=== PATIENT | male | born 1925 ===

== ENCOUNTER 2017-06-21 19:33 | Inpatient (IN) | payer MEDICARE ==
[2017-06-21 20:57] LABS: #Eosinphils 0.1 thou/uL (0.0-0.7); #Monocytes 0.5 thou/uL (0.11-0.59); #Neutrophils 3.8 thou/uL (1.40-6.50); %Basophils 0.3 % (0.0-1.0); %Eosinophils 1.7 % (0.0-10.0); %Lymphocytes 17.9 % (21.0-51.0); %Monocytes 8.9 % (0.0-10.0); %Neutrophils 71.3 % (42.0-75.0); Hemoglobin 12.4 g/dL (14.0-18.0); Mean Corpuscular HGB CONC 32.5 g/dL (32.0-36.0); Mean Corpuscular Hemoglobin 30.7 pg (27.0-31.0); Mean Corpuscular Volume 94.7 fl (80.0-94.0); Mean Platelet Volume 7.5 fL (7.4-10.4); Platelet Count 223 thou/uL (130-400); RBC Distribution Width 11.8 % (11.5-14.5); Red Blood Cell (RBC) Count 4.04 mill/uL (4.70-6.10); White Blood Cell (WBC) Count 5.3 thou/uL (4.8-10.8)
[2017-06-21 21:16] LABS: ALT (SGPT) 8 U/L (8-55); AST (SGOT) 19 U/L (5-34); Albumin 3.7 g/dL (3.4-4.8); Alkaline Phosphatase 63 U/L (40-150); Anion Gap 15 mmol/L (10-20); BUN (Urea Nitrogen) 25 mg/dL (8.4-25.7); Bilirubin, Total 0.4 mg/dL (0.2-1.2); Calc. Creatinine Clearance 0 mL/min (70-130); Calcium 8.8 mg/dL (7.8-10.44); Carbon Dioxide 21 mmol/L (23-31); Chloride 110 mmol/L (98-107); Estimated GFR-MDRD 58; Globulin 2.9 g/dL (2.4-3.5); Glucose 153 mg/dL (83-110); Potassium 4.1 mmol/L (3.5-5.1); Protein, Total 6.6 g/dL (5.8-8.1); Sodium 142 mmol/L (136-145)
--- NOTE | 2017-06-21 21:30 | ULT ---
LEFT LOWER EXTREMITY VENOUS DOPPLER ULTRASOUND 06/21/17 COMPARISON: None. HISTORY: Left foot and ankle pain with swelling and redness. TECHNIQUE: Multiplanar sandoval scale sonographic imaging of the venous structures of the left lower extremity obtayah monteiro with color flow and spectral analysis. FINDINGS: The left common femoral vein, femoral vein, popliteal vein, greater saphenous vein, profunda femoral vein, anterior tibial vein, and posterior tibial vein are patent. There is normal blood flow, augmentation and compression within the deep venous system on the left wi th no evidence for DVT. IMPRESSION: No evidence for deep venous thrombosis of the left lower extremity. POS: ANTON
[2017-06-21] MEDS ORDERED: Piperacillin/Tazobactam 4.5 GM in Sodium Chloride 0.9% 100 ML IVPB SCH (22:15)
[2017-06-22 00:34] LABS: Hemoglobin A1c 5.8 % (4.0-6.0)
[2017-06-22] MEDS ORDERED: Dextrose 50% Abboject 50 ML SYRINGE SLOW IVP PRN (00:43)
[2017-06-22] MEDS ORDERED: Ondansetron HCl/PF 4 MG/2 ML Vial IVP PRN ×2 (00:43→12:30)
[2017-06-22] MEDS ORDERED: Dextrose 5% in Water 1,000 ML IV PRN (00:43)
--- NOTE | 2017-06-22 00:48 | HP ---
DATE OF ADMISSION: 06/21/2017 CHIEF COMPLAINT: Left leg redness and swelling. HISTORY OF PRESENT ILLNESS: This is an 89-year-old white male living in [place] happened to notice the swelling of his left leg for the past 1 week and the fifth toe was oozing blood and has open woun d, so this was noticed by his and daughter today and they went to [place] [facility], where they had x- rays of the foot, which was showing an evidence of fifth metatarsal head erosions suggestive of osteo myelitis. Patient was immediately transferred to [facility]. Patient did not look any septic, hi s white count was normal. His leg was very swollen compared to the right leg and had a venous Dopple r, which was negative. Discussed with ER physician, who plan to call Orthopedics on-call for further management. Patient was started on vancomycin and while in the ER, and he has known history of type 2 diabetes mellitus. According to him, he never checks his blood sugars. Patient is very noncompli ant. His blood sugars in the ER were mildly elevated to 153. Patient otherwise has no other known m edical history PAST MEDICAL HISTORY: Type 2 diabetes mellitus, poorly controlled. PAST SURGICAL HISTORY: Patient had history of left total knee replacement and has a history of colon cancer with partial colectomy more than 10 years ago. Otherwise, he is in good health. SOCIAL HISTORY: Patient is not a known smoker. He smoked more than 30 years ago. No history of alc ohol, no history of illicit drug use. FAMILY HISTORY: No significant family history of coronary artery disease or no premature deaths in t he family. ALLERGIES: No known drug allergies. HOME MEDICATIONS: Patient is not on any home medications. REVIEW OF SYSTEMS: All 12 systems are reviewed with the patient thoroughly and found to be negative at this time. Systems reviewed HEENT, CVS, PRODUCT DISTRIBUTION SPECIALIST, respiratory, GI, , musculoskeletal, skin and integ ument, psychiatric. PHYSICAL EXAMINATION: VITAL SIGNS: Blood pressures are 128/88, heart rate is 18, saturation is 98% on room air. GENERAL: The patient is moderately built and moderately nourished, does not appears to be in acute d istress at this time. Alert, oriented x3. HEENT: Atraumatic, normocephalic. PERRLA. Extraocular movements were intact. Oral mucosa pink and moist. CARDIOVASCULAR: S1, S2 normal. No murmurs, rubs, or gallops. LUNGS: Bilateral air entry was equal. No wheezing, no crackles. ABDOMEN: Soft, nontender, no guarding, no rebound tenderness. Bowel sounds normal. MUSCULOSKELETAL: Patient has left lower extremity, markedly swollen compared to the right extremity with erythema and open serosanguineous discharge noted in the fifth toe of the left leg. No calf ten derness, no joint tenderness, no joint swelling. SKIN: No cyanosis, no erythema was noted as stated above. PRODUCT DISTRIBUTION SPECIALIST: Cranial nerve examination II-XII intact. No focal deficits were noted. Patient does have sens ory deficits on both the lower extremities secondary to poorly controlled type 2 diabetes mellitus. PSYCHIATRIC: No signs of suicidal ideation. No signs of johnnie. No signs of agitation. LYMPHADENOPATHY: No evidence of any generalized lymph nodes were noted. NECK: No thyromegaly. No JVD was noted. LABORATORY DATA: Sodium is 142, potassium 4.1, chloride 110, BUN is 25, creatinine 1.18, blood sugar 153. WBC 5.3, hemoglobin 12.4, hematocrit is 38.2, platelets are 222. X-rays have been reviewed by ER physician and he did mention patient had a fifth metatarsal head infe cted. Otherwise, no x-rays are available at this time. Vascular ultrasound was done here showing no evidence of DVT. ASSESSMENT AND PLAN: 1. Acute left fifth toe osteomyelitis. 2. Type 2 diabetes mellitus. 3. Moderate dehydration. PLAN: Plan is to consult orthopedics, in which the ER physician is already consulted on-call Orthope dics and x-rays will be ordered based on Orthopedic's recommendations. Repeat x-rays will be ordered based on Orthopedic's recommendations. At this time, we will start the patient on IV antibiotics wi th Zosyn and vancomycin to cover MRSA infection. We will also consult Infectious Disease as the [place] ent has history of type 2 diabetes mellitus and infection could be worsening. The patient is not a current smoker and did not smoke very heavily in the past. Patient would need v ascular evaluation, we will do THERESE to look vascularity and possibly consult Vascular Surgery if anyth ing is abnormal. Patient has history of type 2 diabetes mellitus, looks like well controlled. We will check the hemog lobin A1c and we will start the patient on sliding scale insulin at this time. Patient has moderate dehydration. We will continue the patient on IV fluids at this time at 100 mL a n hour. I will closely monitor for any worsening sepsis at this time. Patient did not have any sign s of sepsis with normal white count at this time. DVT prophylaxis with Lovenox 40 mg subcutaneous daily. I spent 75 minutes with this patient.
[2017-06-22] MEDS ORDERED: VANCOMYCIN IVPB PRN (00:50)
[2017-06-22] MEDS ORDERED: Vancomycin HCl 1.25 GM in Sodium Chloride 0.9% 250 ML 250 ML IVPB SCH (01:00)
[2017-06-22 01:32] VITALS: BMI 23.0
[2017-06-22] MEDS: Sodium Chloride 0.9% 1,000 ML IV SCH ×3 (01:43→19:46)
[2017-06-22 06:48] LABS: #Eosinphils 0.1 thou/uL (0.0-0.7); #Lymphocytes 0.9 thou/uL (1.20-3.40); #Monocytes 0.5 thou/uL (0.11-0.59); #Neutrophils 2.9 thou/uL (1.40-6.50); %Basophils 0.9 % (0.0-1.0); %Eosinophils 2.1 % (0.0-10.0); %Lymphocytes 20.1 % (21.0-51.0); %Monocytes 10.6 % (0.0-10.0); %Neutrophils 66.3 % (42.0-75.0); Hemoglobin 11.6 g/dL (14.0-18.0); Mean Corpuscular Hemoglobin 30.3 pg (27.0-31.0); Mean Corpuscular Volume 94.8 fl (80.0-94.0); Mean Platelet Volume 8.5 fL (7.4-10.4); Platelet Count 202 thou/uL (130-400); RBC Distribution Width 11.8 % (11.5-14.5); Red Blood Cell (RBC) Count 3.83 mill/uL (4.70-6.10); White Blood Cell (WBC) Count 4.3 thou/uL (4.8-10.8)
[2017-06-22 06:56] LABS: Anion Gap 15 mmol/L (10-20); BUN (Urea Nitrogen) 25 mg/dL (8.4-25.7); CRP (Inflammatory) 0.58 mg/dL (= or < 0.5); Calc. Creatinine Clearance 50 mL/min (70-130); Calcium 8.7 mg/dL (7.8-10.44); Carbon Dioxide 23 mmol/L (23-31); Chloride 109 mmol/L (98-107); Estimated GFR-MDRD 63; Glucose 91 mg/dL (83-110); Potassium 3.8 mmol/L (3.5-5.1); Sodium 143 mmol/L (136-145)
[2017-06-22] MEDS ORDERED: Vancomycin HCl 1 GM in Sodium Chloride 0.9% 250 ML 250 ML IVPB SCH (09:00)
[2017-06-22] MEDS: Docusate 100 MG CAP PO SCH ×2 (09:01→19:46)
[2017-06-22] MEDS: Famotidine 40 MG/4 ML VIAL SLOW IVP SCH (09:03)
[2017-06-22] MEDS ORDERED: Bupivacaine 0.5% 10 ML VIAL ONE (11:23)
[2017-06-22] MEDS ORDERED: Bupivacaine 0.25% HCL 30 ML VIAL ONE (11:23)
[2017-06-22] MEDS ORDERED: Promethazine HCl 25 MG/ML VIAL SLOW IVP PRN (12:30)
[2017-06-22] MEDS ORDERED: Promethazine HCl 25 MG/ML VIAL IM PRN (12:30)
--- NOTE | 2017-06-22 12:52 | PDOC.PN ---
- Subjective Encounter Start Date: 06/22/17 Encounter Start Time: 10:30 -: old records requested/rev Pt seen and exmained, chart reviewed in its entirety, this is my first visit with this patient. Admitted as transfer from [facility] for persistnet DFI and concern for left 5th toe osteo. Seen earlier today by Dr العلي, to go to OR later today for I&D, possible 5th toe amp. On Vanc and zosyn No f/c, no N/V/D/C, no CP or SOB. at bedside 10 point ROS performed and neg for all systems except as per HPI - Objective Resuscitation Status: Resuscitation Status FULL:Full Resuscitation MAR Reviewed: Yes Vital Signs & Weight: Vital Signs (12 hours) Temp Pulse Resp BP Pulse Ox 06/22/17 08:00 97.9 F 59 L 16 99 06/22/17 07:58 97.9 F 59 L 16 123/64 99 06/22/17 04:53 97.7 F 60 16 112/62 97 Weight Weight 170 lb I&O: 06/21/17 06/22/17 06/23/17 06:59 06:59 06:59 Intake Total 500 Balance 500 Result Diagrams: 06/22/17 00:51 06/22/17 00:51 Additional Labs: Accuchecks 06/22/17 06/22/17 04:52 01:05 POC Glucose 94 88 Radiology Reviewed by me: Yes EKG Reviewed by me: Yes Phys Exam - Physical Examination Constitutional: NAD HEENT: PERRLA, moist MMs, sclera anicteric, oral pharynx no lesions Neck: no nodes, no JVD, supple, full ROM Respiratory: no wheezing, no rales, no rhonchi, clear to auscultation bilateral Cardiovascular: RRR, no significant murmur, no rub Gastrointestinal: soft, non-tender, no distention, positive bowel sounds Musculoskeletal: pulses present, edema present 1+ DP and PT bilaterally, LLE 2+ edema and virtually none to RLE Neurological: non-focal, normal sensation, moves all 4 limbs Lymphatic: no nodes Psychiatric: normal affect, A&O x 3 Skin: normal turgor, cap refill <2 seconds Deviation from normal: left dorsal foot red and warn, scaling over bursa. Dx/Plan (1) Cellulitis of left toe Code(s): L03.032 - CELLULITIS OF LEFT TOE Status: Acute Comment: I&D today, on Vanc and Zosyn, CCM until grams stain resulted (2) Diabetic neuropathy associated with type 2 diabetes mellitus Code(s): E11.40 - TYPE 2 DIABETES MELLITUS WITH DIABETIC NEUROPATHY, UNSP Status: Acute Qualifiers: Diabetes mellitus complication detail: diabetic polyneuropathy Qualified Code(s): E11.42 - Type 2 diabetes mellitus with diabetic polyneuropathy (3) Ulcer of toe of left foot Code(s): L97.529 - NON-PRESSURE CHRONIC ULCER OTH PRT LEFT FOOT W UNSP SEVERITY Status: Acute Qualifiers: Non-pressure ulcer stage: unspecified non-pressure ulcer stage Qualified Code(s): L97.529 - Non-pressure chronic ulcer of other part of left foot with unspecified severity Comment: sanchez 2-3 - Plan cont current plan of care, plan discussed w/ family, continue antibiotics * .
--- NOTE | 2017-06-22 13:54 | CON ---
DATE OF CONSULTATION: 06/22/2017 REASON FOR CONSULTATION: Evaluate patient with left fifth toe osteomyelitis/cellulitis in the face o f uncontrolled diabetes mellitus. HISTORY OF PRESENT ILLNESS: Mr. Trejo is an 89-year-old gentleman who is followed by Dr. Rosendo sainz peripherally at home. He has a history of diabetes. He intermittently takes metformin. He has not checked his blood sugars at home. He has a history of 8 months of edema, erythema, and drainage from his left fifth toe. He presented to the emergency department last night when he showed his and she brought him in. He has osteomyelitis noted on his films from the [facility] emergency room. He has drainage from a small punctate puncture in the dorsal surface of his fifth toe. There is eryt anastacia extending up onto the mid foot. His left leg is grossly edematous. He has had an ultrasound sh owing no deep venous thrombosis. PAST MEDICAL HISTORY: Uncontrolled diabetes mellitus. PAST SURGICAL HISTORY: 1. Left total knee replacement. 2. History of colon cancer with partial colectomy. SOCIAL HISTORY: He does not use tobacco or alcohol. He has been for 68 years. ALLERGIES: None. HOME MEDICATIONS: The patient intermittently takes metformin at home. REVIEW OF SYSTEMS: Ten point review of systems performed and is negative except as above. PHYSICAL EXAMINATION: GENERAL: This is a well-developed, well-nourished man resting comfortably in bed. VITAL SIGNS: Height 6 feet, weight 170 pounds, BSA is 1.98. Temperature is 97.9, pulse is 59 and re gular, blood pressure 123/64. HEENT: Sclerae nonicteric. NECK: Supple, without adenopathy. There is no carotid bruit. CHEST: Clear bilaterally. HEART: Rhythm regular. He has no murmurs. ABDOMEN: Soft and nontender, without mass. EXTREMITIES: Left lower extremity is grossly edematous. There is erythema extending onto the mid fo ot. His left fifth toe has a punctate puncture spot that has purulent drainage. Report on the films from [facility] shows osteomyelitis involving the 5th digit and metatarsal head. VASCULAR: He has palpable carotid, radial, femoral, and posterior tibial pulses bilaterally. ASSESSMENT AND PLAN: Osteomyelitis of the fifth toe. The patient needs debridement and probable amp utation of the fifth toe and metatarsal head. We will make plans for this today. He has been saturnino oliver on vancomycin and Zosyn which provide adequate coverage. His blood sugars have been adequately cov ered while he has been here in the hospital.
[2017-06-22] MEDS ORDERED: HYDROcodone/Acetaminophen 5/325 mg Tablet PO PRN (14:03)
[2017-06-22] MEDS ORDERED: Fentanyl 100 MCG/2 ML VIAL SLOW IVP PRN (14:03)
--- NOTE | 2017-06-22 14:41 | ULT ---
LEFT LOWER EXTREMITY ARTERIAL DOPPLER ULTRASOUND EVALUATION: DATE: 06/22/17. FINDINGS: Multiple longitudinal and transverse images of the left lower extremity arterial system are obtained using a multihertz linear ray transducer. Rela-time, color flow, and spectral waveform Doppler andrei sis is used to evaluate the left lower extremity arterial system. The patient has a history of left foot osteomyelitis 5th toe. Images demonstrate biphasic waveform in the left common femoral, superficial femoral, and femora prof unda. Biphasic waveform is also seen in the left popliteal artery and left anterior tibial arteries. There is monophasic waveform of the left posterior tibial artery as well as the left dorsalis pedis . 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 Correlation with CT angiogr aphy may be of use. IMPRESSION: No significant evidence of obvious occlusion. There does appear to be some predominantly distal dise ase distal to the left knee. POS: ANTON
[2017-06-22] MEDS ORDERED: Lidocaine 1% PF 5 ML VIAL ONE (15:25)
[2017-06-22] MEDS ORDERED: PROPOFOL 200 MG/20 ML VIAL ONE (15:25)
--- NOTE | 2017-06-22 15:28 | OP ---
DATE OF OPERATION: 06/22/2017 PREOPERATIVE DIAGNOSIS: Left fifth toe osteomyelitis for 8 months. POSTOPERATIVE DIAGNOSIS: Left fifth toe osteomyelitis for 8 months. PROCEDURE: Left fifth toe ray amputation and open packing. SURGEON: Madi العلي M.D. ANESTHESIA: 0.5% Marcaine for toe block and IV sedation provided by Tima Bentley CRNA. DESCRIPTION OF PROCEDURE: After consent was obtained, the patient was brought to the operating room and placed in the supine position on the operating table. Appropriate monitoring was placed. IV sed ation was begun. Left foot was prepped and draped in usual sterile fashion. The toe was blocked wit h 0.5% Marcaine plain. The toe was then opened in a circular fashion around its base. This was cult ured. Bone was then resected and rongeur used to debride back on to the metatarsal head. There was good bleeding tissue. One of the digital arteries was tied. The wound was irrigated, packed, and st erile dressing applied. The patient tolerated the procedure well and was transferred to the recovery room in stable condition.
--- NOTE | 2017-06-22 16:48 | CON ---
DATE OF CONSULTATION: 06/22/2017 REASON FOR CONSULTATION: Left foot infection. HISTORY OF PRESENT ILLNESS: An 89-year-old patient of Dr. Robbins, first admission to this hospital who has a history of type 2 diabetes, neuropathy, and a chronic ulcer, left lateral forefoot, which p rogressed without knowledge of the family or his daughter. Eventually, developed inflammatory change s with drainage and was noticed by family members and then he was brought to [facility]. There, rad iology studies showed erosion suggestive of osteomyelitis. The patient has been admitted and had josette luation by Dr. العلي and he had good pulses and he underwent amputation of the fifth toe and metatars al head. Currently, Mr. Trejo is in no distress other than pimples in his face. He denies any hea daches, visual symptoms, sore throat, odynophagia or dysphagia. No cough, sputum production or chest pain. No abdominal pain, diarrhea or genitourinary symptoms, except for maybe some retention of uri ne. No other joint symptoms. No neurological symptoms. PAST MEDICAL HISTORY: Type 2 diabetes, prostate cancer being monitored without any surgical interven tion. Also, left TKR, colon cancer with partial colectomy many years ago, in remission. SOCIAL HISTORY: Former smoker. Drinks occasionally. FAMILY HISTORY: Noncontributory. ALLERGIES: None. CURRENT MEDICATIONS: Shoals, dextrose, Colace, Pepcid, Sublimaze, glucagon, insulin, promethazine and vancomycin. PHYSICAL EXAMINATION: VITAL SIGNS: Essentially normal. SKIN: There is an area of purulence in the interdigital space on admission with swelling and redness of the fifth toe, left side and redness extending towards the dorsal aspect of the left foot with hy perkeratosis and some yellow scab over the groove between the toes in the distal forefoot. Small ulc eration of the dorsal aspect of the fifth toe, current dressing not removed. The patient has periphe ral IV access and no Morgan catheter. No lymphadenopathy. HEENT: Ocular movements are conjugate. Few papules with inflammatory changes in the facial area. O ral cavity unremarkable. NECK: Supple. No jugular venous distention. LUNGS: With symmetric clear breath sounds. HEART: S1 and S2, regular rate. No S3 or S4. ABDOMEN: Soft, not distended or tender. No ascites. May be some bladder distention. GENITOURINARY: No genital edema or other abnormalities. EXTREMITIES: Pulses are 2+ and bounding in popliteals and posterior tibialis 1+. There is dorsalis pedis, faintly palpable at right side. Moves extremities equally with some limitations due to the in flammatory process. NEUROLOGIC: Cognitive function. The patient is awake, a little bit sluggish on replies. Follows co mmands. Recall is somewhat limited. He recognizes relatives. LABORATORY DATA: White blood cell count 5.3, hemoglobin 12.4, MCV 94, platelets 223 with 71% neutrop hils and 17% lymphocytes. Sodium 143, creatinine 1.1. CRP 0.58. Liver profile normal. Albumin 3.7 and globulin 2.9. Urinalysis: We do not have a urinalysis. Microbiology studies: The only thing we have thus far is blood culture, two sets. I do not see any cultures from the sample or any sample from the toe right now. ASSESSMENT AND PLAN: Type 2 diabetes, neuropathy, osteomyelitis, left fifth toe, status post ray amp utation. The usual polymicrobial amrik including Streptococci gram negative rods, Staphylococcus aur eus, anaerobes to be considered. Hopefully, the samples are submitted for microbiology evaluation. If not, then we will have to treat broad spectrum coverage. Since he has adequate blood supply, shou ld be able to devise an oral regimen for him to be discharged as long as the margin of amputation is good. In this kind of situation, there is a risk of recrudescence of the inflammatory process subseq uently and careful monitoring in the outpatient setting is required.
[2017-06-22] MEDS ORDERED: Lorazepam 0.5 MG TAB PO SCH (23:30)
[2017-06-23] MEDS ORDERED: Haloperidol Lactate 5 MG/ML VIAL SLOW IVP SCH (01:01)
[2017-06-23] MEDS ORDERED: Vancomycin HCl 1.25 GM in Sodium Chloride 0.9% 250 ML 250 ML IVPB SCH (02:00)
[2017-06-23 04:35] LABS: #Eosinphils 0.1 thou/uL (0.0-0.7); #Monocytes 0.5 thou/uL (0.11-0.59); #Neutrophils 3.9 thou/uL (1.40-6.50); %Basophils 0.1 % (0.0-1.0); %Eosinophils 1.8 % (0.0-10.0); %Lymphocytes 17.9 % (21.0-51.0); %Neutrophils 71.3 % (42.0-75.0); Hemoglobin 12.2 g/dL (14.0-18.0); Mean Corpuscular HGB CONC 32.7 g/dL (32.0-36.0); Mean Corpuscular Hemoglobin 30.4 pg (27.0-31.0); Mean Corpuscular Volume 93.1 fl (80.0-94.0); Mean Platelet Volume 7.8 fL (7.4-10.4); Platelet Count 219 thou/uL (130-400); RBC Distribution Width 11.7 % (11.5-14.5); Red Blood Cell (RBC) Count 4.02 mill/uL (4.70-6.10); White Blood Cell (WBC) Count 5.5 thou/uL (4.8-10.8)
[2017-06-23 04:55] LABS: Anion Gap 11 mmol/L (10-20); BUN (Urea Nitrogen) 16 mg/dL (8.4-25.7); Calc. Creatinine Clearance 52 mL/min (70-130); Calcium 8.6 mg/dL (7.8-10.44); Carbon Dioxide 27 mmol/L (23-31); Chloride 105 mmol/L (98-107); Estimated GFR-MDRD 66; Glucose 96 mg/dL (83-110); Magnesium 1.8 mg/dL (1.6-2.6); Potassium 3.4 mmol/L (3.5-5.1); Sodium 140 mmol/L (136-145)
[2017-06-23] MEDS: Vancomycin HCl 1.25 GM in Sodium Chloride 0.9% 250 ML 250 ML IVPB SCH (05:45)
[2017-06-23] MEDS: Sodium Chloride 0.9% 1,000 ML IV SCH ×2 (05:45→15:30)
[2017-06-23] MEDS: Famotidine 40 MG/4 ML VIAL SLOW IVP SCH (08:46)
[2017-06-23] MEDS: Docusate 100 MG CAP PO SCH ×2 (08:46→20:22)
--- NOTE | 2017-06-23 13:44 | PDOC.PN ---
- Subjective Encounter Start Date: 06/23/17 Encounter Start Time: 12:00 Pt awake and alert, pleasantly confused. disoriented overnight, place din soft restraints. Trying to get up. No pain due to neuropathy, no f/c, no n/V/D/c, no CP or SOB to OR, 5th partial ray, cultures and pathpending, wound opened. ? plan for VAC Seen by ID, awaiting results for final recs ROS not obtainable due to confusion - Objective Resuscitation Status: Resuscitation Status FULL:Full Resuscitation MAR Reviewed: Yes Vital Signs & Weight: Vital Signs (12 hours) Temp Pulse Resp BP Pulse Ox 06/23/17 11:35 98.3 F 67 18 122/64 99 06/23/17 08:00 98.9 F 76 16 Weight Admit Weight 170 lb Weight 170 lb I&O: 06/22/17 06/23/17 06/24/17 06:59 06:59 06:59 Intake Total 500 240 240 Balance 500 240 240 Result Diagrams: 06/23/17 03:56 06/23/17 03:55 Additional Labs: Accuchecks 06/23/17 06/22/17 06/22/17 06:36 19:35 16:06 POC Glucose 110 155 H 91 Phys Exam - Physical Examination Constitutional: NAD HEENT: PERRLA, moist MMs, sclera anicteric, oral pharynx no lesions Neck: no nodes, no JVD, supple, full ROM Respiratory: no wheezing, no rales, no rhonchi, clear to auscultation bilateral Cardiovascular: RRR, no significant murmur, no rub Gastrointestinal: soft, non-tender, no distention, positive bowel sounds Musculoskeletal: pulses present, edema present Neurological: non-focal, normal sensation, moves all 4 limbs Lymphatic: no nodes Psychiatric: normal affect Skin: no rash, normal turgor, cap refill <2 seconds Dx/Plan (1) Cellulitis of left toe Code(s): L03.032 - CELLULITIS OF LEFT TOE Status: Acute Comment: I&D/ partial 5th ray 06/22, on Vanc and Zosyn, CCM until grams stain resulted (2) Diabetic neuropathy associated with type 2 diabetes mellitus Code(s): E11.40 - TYPE 2 DIABETES MELLITUS WITH DIABETIC NEUROPATHY, UNSP Status: Acute Qualifiers: Diabetes mellitus complication detail: diabetic polyneuropathy Qualified Code(s): E11.42 - Type 2 diabetes mellitus with diabetic polyneuropathy (3) Ulcer of toe of left foot Code(s): L97.529 - NON-PRESSURE CHRONIC ULCER OTH PRT LEFT FOOT W UNSP SEVERITY Status: Acute Qualifiers: Non-pressure ulcer stage: unspecified non-pressure ulcer stage Qualified Code(s): L97.529 - Non-pressure chronic ulcer of other part of left foot with unspecified severity Comment: sanchez 3 - Plan cont current plan of care, plan discussed w/ family, continue antibiotics, PT/OT * .
[2017-06-23] MEDS: Sterile Water 10 ML VIAL FS PRN ×2 (15:14→20:29)
[2017-06-23] MEDS: Ziprasidone 20 MG VIAL IM PRN ×2 (15:14→20:28)
--- NOTE | 2017-06-23 18:14 | PRG ---
DATE OF SERVICE: 06/23/2017 SUBJECTIVE: Bit cantankerous this morning. He had amputation of the area involved by osteomyelitis. OBJECTIVE: VITAL SIGNS: Normal. LUNGS: Clear. HEART: S1, S2, regular rate. ABDOMEN: Soft. EXTREMITIES: Foot lesion with a small open area where the amputation was accomplished with serosangu ineous drainage. LABORATORY DATA: White cell count 5.5, hemoglobin 12, platelets 2119. Toe culture with Staphylococc us aureus, pending susceptibility testing. DISCUSSION: Type 2 diabetes, neuropathy, osteomyelitis, left fifth toe status post ray amputation, w aiting for the final identification of the organism and hopefully transition to oral antimicrobial th erapy in view of the adequate blood supply and margin of amputation.
[2017-06-23] MEDS: HumaLOG 300 UNITS/3 ML VIAL SC PRN (18:31)
[2017-06-24] MEDS ORDERED: hydrALAZINE 20 MG/ML VIAL SLOW IVP SCH (04:41)
[2017-06-24 05:38] LABS: #Eosinphils 0.1 thou/uL (0.0-0.7); #Lymphocytes 0.5 thou/uL (1.20-3.40); #Monocytes 0.6 thou/uL (0.11-0.59); #Neutrophils 5.6 thou/uL (1.40-6.50); %Basophils 0.2 % (0.0-1.0); %Eosinophils 0.9 % (0.0-10.0); Hemoglobin 13.7 g/dL (14.0-18.0); Mean Corpuscular HGB CONC 31.6 g/dL (32.0-36.0); Mean Corpuscular Hemoglobin 29.4 pg (27.0-31.0); Mean Corpuscular Volume 92.9 fl (80.0-94.0); Mean Platelet Volume 7.9 fL (7.4-10.4); Platelet Count 249 thou/uL (130-400); RBC Distribution Width 11.8 % (11.5-14.5); Red Blood Cell (RBC) Count 4.68 mill/uL (4.70-6.10); White Blood Cell (WBC) Count 6.8 thou/uL (4.8-10.8)
[2017-06-24] MEDS: Sodium Chloride 0.9% 1,000 ML IV SCH ×3 (05:54→21:18)
[2017-06-24] MEDS: Vancomycin HCl 1.25 GM in Sodium Chloride 0.9% 250 ML 250 ML IVPB SCH (06:06)
[2017-06-24 06:08] LABS: Anion Gap 13 mmol/L (10-20); BUN (Urea Nitrogen) 16 mg/dL (8.4-25.7); Calc. Creatinine Clearance 51 mL/min (70-130); Calcium 9.3 mg/dL (7.8-10.44); Carbon Dioxide 29 mmol/L (23-31); Chloride 102 mmol/L (98-107); Estimated GFR-MDRD 64; Glucose 149 mg/dL (83-110); Potassium 3.7 mmol/L (3.5-5.1); Sodium 140 mmol/L (136-145)
[2017-06-24] MEDS ORDERED: Vancomycin HCl 500 MG in Sodium Chloride 0.9% 100 ML IVPB SCH (07:15)
[2017-06-24] MEDS: Famotidine 40 MG/4 ML VIAL SLOW IVP SCH (09:20)
[2017-06-24] MEDS: Docusate 100 MG CAP PO SCH ×2 (09:20→21:13)
--- NOTE | 2017-06-24 14:25 | PDOC.PN ---
- Subjective Encounter Start Date: 06/24/17 Encounter Start Time: 14:23 Mr. Trejo was seen today in follow-up of diabetic foot infection. He has advanced dementia, and is unable to express his concerns. He appears comfortable , and denies pain in his foot. - Objective Resuscitation Status: Resuscitation Status FULL:Full Resuscitation MAR Reviewed: Yes Vital Signs & Weight: Vital Signs (12 hours) Temp Pulse Resp BP BP Pulse Ox 06/24/17 08:00 98.3 F 99 18 151/71 H 98 06/24/17 05:53 90 186/93 H 06/24/17 04:15 97.8 F 90 18 186/93 H 96 Weight Admit Weight 170 lb Weight 170 lb I&O: 06/23/17 06/24/17 06/25/17 06:59 06:59 06:59 Intake Total 240 4100 Balance 240 4100 Result Diagrams: 06/24/17 04:55 06/24/17 04:55 Additional Labs: Accuchecks 06/24/17 06/24/17 06/23/17 11:00 06:00 21:28 POC Glucose 161 H 143 H 143 H 06/23/17 06/23/17 16:20 11:05 POC Glucose 166 H 146 H Phys Exam - Physical Examination HEENT: PERRLA, sclera anicteric Respiratory: no wheezing, no rales, no rhonchi, clear to auscultation bilateral Cardiovascular: RRR, no significant murmur Gastrointestinal: soft, non-tender, positive bowel sounds Musculoskeletal: no edema Dx/Plan (1) Cellulitis of left toe Code(s): L03.032 - CELLULITIS OF LEFT TOE Status: Acute Comment: I&D/ partial 5th ray 06/22, on Vanc and Zosyn, CCM until grams stain resulted (2) Diabetic neuropathy associated with type 2 diabetes mellitus Code(s): E11.40 - TYPE 2 DIABETES MELLITUS WITH DIABETIC NEUROPATHY, UNSP Status: Acute Qualifiers: Diabetes mellitus complication detail: diabetic polyneuropathy Qualified Code(s): E11.42 - Type 2 diabetes mellitus with diabetic polyneuropathy - Plan * Cellulitis and osteomyelitis of the 5th toe on the left foot- he is s/p ray amputation of the 5th toe. * Wound cultures are positive for MRSA- continue IV Vancomycin, and await further antibiotic recommendations from Dr. Ugalde * Continue local wound care * DM- blood glucose is stable * Elevated Blood pressures- will monitor- may need to add an antihypertensive medication
--- NOTE | 2017-06-24 20:19 | EKG ---
Test Reason : Blood Pressure : / mmHG Vent. Rate : 058 BPM Atrial Rate : 058 BPM P-R Int : 200 ms QRS Dur : 098 ms QT Int : 446 ms P-R-T Axes : 077 079 046 degrees QTc Int : 437 ms Sinus bradycardia Otherwise normal ECG When compared with ECG of 11-MAY-2007 06:29, No significant change was found Confirmed by WALI PINA (2) on 06/24/2017 8:19:26 PM Referred By: Confirmed By:WALI PINA
[2017-06-25] MEDS: Vancomycin HCl 1.5 GM in Sodium Chloride 0.9% 250 ML 300 ML IVPB SCH (05:15)
[2017-06-25] MEDS: Famotidine 40 MG/4 ML VIAL SLOW IVP SCH (08:38)
[2017-06-25] MEDS: Docusate 100 MG CAP PO SCH ×2 (08:38→21:10)
[2017-06-25] MEDS: Sodium Chloride 0.9% 1,000 ML IV SCH ×2 (08:42→21:09)
[2017-06-25] MEDS: HumaLOG 300 UNITS/3 ML VIAL SC PRN (11:43)
--- NOTE | 2017-06-25 14:49 | PDOC.PN ---
- Subjective Encounter Start Date: 06/25/17 Encounter Start Time: 14:47 Mr. Trejo was seen today in follow-up. He does not have any complaints. His is at the bedside, and says he is calm now. - Objective Resuscitation Status: Resuscitation Status FULL:Full Resuscitation MAR Reviewed: Yes Vital Signs & Weight: Vital Signs (12 hours) Temp Pulse Resp BP Pulse Ox 06/25/17 08:00 98.2 F 77 16 95 06/25/17 07:50 98.2 F 77 16 148/77 H 95 Weight Admit Weight 170 lb Weight 170 lb I&O: 06/24/17 06/25/17 06/26/17 06:59 06:59 06:59 Intake Total 4100 3051 Balance 4100 3051 Result Diagrams: 06/24/17 04:55 06/24/17 04:55 Additional Labs: Accuchecks 06/25/17 06/25/17 06/24/17 11:32 04:34 20:01 POC Glucose 216 H 127 H 195 H 06/24/17 16:32 POC Glucose 154 H Phys Exam - Physical Examination HEENT: PERRLA, sclera anicteric Respiratory: no wheezing, no rales, no rhonchi, clear to auscultation bilateral Cardiovascular: RRR, no significant murmur, no rub Gastrointestinal: soft, non-tender, positive bowel sounds Musculoskeletal: edema present trace pedal edema, foot is dressed Dx/Plan (1) Cellulitis of left toe Code(s): L03.032 - CELLULITIS OF LEFT TOE Status: Acute Comment: I&D/ partial 5th ray 06/22, on Vanc and Zosyn, CCM until grams stain resulted (2) Diabetic neuropathy associated with type 2 diabetes mellitus Code(s): E11.40 - TYPE 2 DIABETES MELLITUS WITH DIABETIC NEUROPATHY, UNSP Status: Acute Qualifiers: Diabetes mellitus complication detail: diabetic polyneuropathy Qualified Code(s): E11.42 - Type 2 diabetes mellitus with diabetic polyneuropathy - Plan * Cellulitis and Osteomyeltits of the left 5th toe- s/p ray amputation- continue local wound care * Plan is for closure of the wound on Friday * Wound care is growing MRSA- Continue Vancomycin * DM - blood glucose is stable.
--- NOTE | 2017-06-25 17:34 | PDOC.EVN ---
Event Note - Event Note Event Note: I spoke with the patient's to verify his code status, and she tells me he does not want to be resuscitated. Will change Code Status to DNR.
[2017-06-26 05:35] LABS: Vancomycin, Trough 15.5 ug/mL
[2017-06-26] MEDS: Vancomycin HCl 1.5 GM in Sodium Chloride 0.9% 250 ML 300 ML IVPB SCH (06:10)
[2017-06-26] MEDS: Sodium Chloride 0.9% 1,000 ML IV SCH ×3 (06:10→20:32)
[2017-06-26] MEDS: Docusate 100 MG CAP PO SCH ×2 (07:43→20:26)
[2017-06-26] MEDS: Famotidine 40 MG/4 ML VIAL SLOW IVP SCH (09:29)
--- NOTE | 2017-06-26 12:41 | PDOC.PN ---
- Subjective Encounter Start Date: 06/26/17 Encounter Start Time: 12:39 Subjective: seen and examined no new complaint - Objective Resuscitation Status: Resuscitation Status DNR:Do Not Resuscitate Vital Signs & Weight: Vital Signs (12 hours) Temp Pulse Resp BP BP Pulse Ox 06/26/17 11:14 98.7 F 89 16 157/79 H 98 06/26/17 07:47 99.5 F 85 16 06/26/17 07:29 99.5 F 85 16 162/76 H 95 Weight Admit Weight 170 lb Weight 170 lb I&O: 06/25/17 06/26/17 06/27/17 06:59 06:59 06:59 Intake Total 3051 Balance 3051 Result Diagrams: 06/24/17 04:55 06/24/17 04:55 Additional Labs: Accuchecks 06/26/17 06/26/17 06/25/17 11:15 04:59 19:58 POC Glucose 161 H 136 H 143 H 06/25/17 16:50 POC Glucose 95 Phys Exam - Physical Examination Constitutional: NAD HEENT: PERRLA, moist MMs, sclera anicteric, TM's clear Neck: no nodes, no JVD, supple, full ROM Respiratory: no wheezing, no rales, no rhonchi, clear to auscultation bilateral Cardiovascular: RRR, no significant murmur, no rub Gastrointestinal: soft, non-tender, no distention, positive bowel sounds Dx/Plan (1) Cellulitis of left toe Code(s): L03.032 - CELLULITIS OF LEFT TOE Status: Acute Comment: I&D/ partial 5th ray 06/22, on Vanc and Zosyn, CCM until grams stain resulted (2) Diabetic neuropathy associated with type 2 diabetes mellitus Code(s): E11.40 - TYPE 2 DIABETES MELLITUS WITH DIABETIC NEUROPATHY, UNSP Status: Acute Qualifiers: Diabetes mellitus complication detail: diabetic polyneuropathy Qualified Code(s): E11.42 - Type 2 diabetes mellitus with diabetic polyneuropathy (3) Ulcer of toe of left foot Code(s): L97.529 - NON-PRESSURE CHRONIC ULCER OTH PRT LEFT FOOT W UNSP SEVERITY Status: Acute Qualifiers: Non-pressure ulcer stage: unspecified non-pressure ulcer stage Qualified Code(s): L97.529 - Non-pressure chronic ulcer of other part of left foot with unspecified severity Comment: sanchez 3 - Plan plan discussed w/ family, continue antibiotics For surgical closure tommorrow -: Pain management * .
[2017-06-26] MEDS ORDERED: Acetaminophen 500 MG TAB PO PRN (17:15)
[2017-06-27] MEDS: Vancomycin HCl 1.5 GM in Sodium Chloride 0.9% 250 ML 300 ML IVPB SCH (05:41)
[2017-06-27] MEDS: Sodium Chloride 0.9% 1,000 ML IV SCH ×2 (05:43→20:38)
[2017-06-27] MEDS ORDERED: Lidocaine 1% PF 5 ML VIAL ONE (06:57)
[2017-06-27] MEDS ORDERED: PROPOFOL 200 MG/20 ML VIAL ONE (06:57)
[2017-06-27] MEDS ORDERED: Ondansetron HCl/PF 4 MG/2 ML Vial ONE (06:57)
[2017-06-27] MEDS: Docusate 100 MG CAP PO SCH ×2 (07:56→20:39)
[2017-06-27] MEDS: Famotidine 40 MG/4 ML VIAL SLOW IVP SCH (11:06)
[2017-06-27] MEDS ORDERED: Fentanyl 250 MCG/5 ML VIAL ONE (12:12)
[2017-06-27] MEDS ORDERED: Promethazine HCl 25 MG/ML VIAL ONE (12:13)
[2017-06-27] MEDS ORDERED: Propofol 500 MG/50 ML VIAL ONE (13:16)
[2017-06-27] MEDS ORDERED: Bupivacaine PF 0.5% 30 ML VIAL ONE (13:38)
[2017-06-27] MEDS ORDERED: Promethazine HCl 25 MG/ML VIAL SLOW IVP PRN (14:06)
[2017-06-27] MEDS ORDERED: Morphine Sulfate 2 MG/ML SYRINGE SLOW IVP PRN (14:06)
[2017-06-27] MEDS ORDERED: Ondansetron HCl/PF 4 MG/2 ML Vial IVP PRN (14:06)
--- NOTE | 2017-06-27 14:22 | PDOC.PN ---
- Subjective Encounter Start Date: 06/27/17 Encounter Start Time: 14:20 Subjective: Seen and examined -afebrile now-febrile yesterday - Objective Resuscitation Status: Resuscitation Status DNR:Do Not Resuscitate Vital Signs & Weight: Vital Signs (12 hours) Temp Pulse Resp BP BP Pulse Ox 06/27/17 11:22 98.5 F 74 16 136/70 06/27/17 08:10 98.4 F 88 18 135/75 94 L 06/27/17 08:00 98.4 F 88 18 06/27/17 04:00 98.1 F 87 20 170/93 H 96 Weight Admit Weight 170 lb Weight 170 lb I&O: 06/26/17 06/27/17 06/28/17 06:59 06:59 06:59 Intake Total 1320 Balance 1320 Result Diagrams: 06/24/17 04:55 06/24/17 04:55 Additional Labs: Accuchecks 06/27/17 06/27/17 06/26/17 11:21 04:48 20:26 POC Glucose 113 H 124 H 145 H 06/26/17 16:44 POC Glucose 154 H Phys Exam - Physical Examination Constitutional: NAD HEENT: PERRLA, moist MMs, sclera anicteric, TM's clear, oral pharynx no lesions Neck: no nodes, no JVD, supple, full ROM Respiratory: no wheezing, no rales, no rhonchi, clear to auscultation bilateral Cardiovascular: RRR, no significant murmur, no rub Gastrointestinal: soft, non-tender, no distention, positive bowel sounds Musculoskeletal: no edema, pulses present Dx/Plan (1) Cellulitis of left toe Code(s): L03.032 - CELLULITIS OF LEFT TOE Status: Acute Comment: I&D/ partial 5th ray 06/22, on Vanc and Zosyn, CCM until grams stain resulted (2) Diabetic neuropathy associated with type 2 diabetes mellitus Code(s): E11.40 - TYPE 2 DIABETES MELLITUS WITH DIABETIC NEUROPATHY, UNSP Status: Acute Qualifiers: Diabetes mellitus complication detail: diabetic polyneuropathy Qualified Code(s): E11.42 - Type 2 diabetes mellitus with diabetic polyneuropathy (3) Ulcer of toe of left foot Code(s): L97.529 - NON-PRESSURE CHRONIC ULCER OTH PRT LEFT FOOT W UNSP SEVERITY Status: Acute Qualifiers: Non-pressure ulcer stage: unspecified non-pressure ulcer stage Qualified Code(s): L97.529 - Non-pressure chronic ulcer of other part of left foot with unspecified severity Comment: sanchez 3 - Plan plan discussed w/ family, continue antibiotics, PT/OT, pediatric social worker Surgical closure * .
[2017-06-27] MEDS: HYDROcodone/Acetaminophen 5/325 mg Tablet PO PRN (17:25)
[2017-06-27] MEDS: HumaLOG 300 UNITS/3 ML VIAL SC PRN (21:13)
--- NOTE | 2017-06-27 23:34 | OP ---
DATE OF PROCEDURE: 06/27/2017 PREOPERATIVE DIAGNOSIS: Status post left fifth toe amputation with need for wound closure. POSTOPERATIVE DIAGNOSIS: Status post left fifth toe amputation with need for wound closure. PROCEDURE: Debridement and closure of the left fifth toe wound. SURGEON: Madi العلي M.D. ANESTHESIA: 0.5% Marcaine for a toe block digital block and IV sedation provided by , CORRESPONDENCE TRANSCRIBER ESTIMATED BLOOD LOSS: Minimal. DESCRIPTION OF PROCEDURE: After consent was obtained, the patient was brought to the operating room and placed supine on the operating room table. Appropriate anesthetic monitor was placed and sedatio n begun. Left foot was prepped and draped in usual sterile fashion. A 0.5% Marcaine was infiltrated into the wound for a digital block. Some of the granulation tissue was debrided. The most distal p ortion of the fifth metatarsal was debrided. This allowed for closure of the wound. Wound was then closed with interrupted 3-0 nylon suture. Sterile dressings applied. The patient tolerated procedur e well, and was transferred to recovery room in stable condition.
[2017-06-28] MEDS: Sodium Chloride 0.9% 1,000 ML IV SCH ×2 (05:18→18:02)
[2017-06-28] MEDS: Vancomycin HCl 1.5 GM in Sodium Chloride 0.9% 250 ML 300 ML IVPB SCH (05:18)
[2017-06-28] MEDS: HYDROcodone/Acetaminophen 5/325 mg Tablet PO PRN (08:44)
[2017-06-28] MEDS: Docusate 100 MG CAP PO SCH ×2 (08:47→20:46)
[2017-06-28] MEDS: Famotidine 40 MG/4 ML VIAL SLOW IVP SCH (09:53)
--- NOTE | 2017-06-28 14:21 | PDOC.PN ---
- Objective Resuscitation Status: Resuscitation Status DNR:Do Not Resuscitate Vital Signs & Weight: Vital Signs (12 hours) Temp Pulse Resp BP Pulse Ox 06/28/17 08:20 98.3 F 72 18 132/71 93 L 06/28/17 08:00 98.3 F 72 18 Weight Admit Weight 170 lb Weight 170 lb I&O: 06/27/17 06/28/17 06/29/17 06:59 06:59 06:59 Intake Total 1320 2115 360 Balance 1320 2115 360 Result Diagrams: 06/24/17 04:55 06/24/17 04:55 Additional Labs: Accuchecks 06/28/17 06/28/17 06/27/17 11:21 05:05 20:50 POC Glucose 156 H 114 H 187 H 06/27/17 17:29 POC Glucose 117 H Dx/Plan - Plan * .
--- NOTE | 2017-06-28 14:24 | PDOC.PN ---
- Subjective Encounter Start Date: 06/28/17 Encounter Start Time: 14:33 Subjective: No new complaints. -: No acute events overnight. - Objective Resuscitation Status: Resuscitation Status DNR:Do Not Resuscitate MAR Reviewed: Yes Vital Signs & Weight: Vital Signs (12 hours) Temp Pulse Resp BP Pulse Ox 06/28/17 08:20 98.3 F 72 18 132/71 93 L 06/28/17 08:00 98.3 F 72 18 Weight Admit Weight 170 lb Weight 170 lb I&O: 06/27/17 06/28/17 06/29/17 06:59 06:59 06:59 Intake Total 1320 2115 360 Balance 1320 2115 360 Result Diagrams: 06/24/17 04:55 06/24/17 04:55 Additional Labs: Accuchecks 06/28/17 06/28/17 06/27/17 11:21 05:05 20:50 POC Glucose 156 H 114 H 187 H 06/27/17 17:29 POC Glucose 117 H Phys Exam - Physical Examination Constitutional: NAD HEENT: PERRLA, moist MMs, sclera anicteric Neck: no JVD, supple, full ROM Respiratory: no wheezing, no rales, no rhonchi, clear to auscultation bilateral Cardiovascular: RRR, no significant murmur, no rub Gastrointestinal: soft, non-tender, no distention, positive bowel sounds Musculoskeletal: no edema, pulses present Neurological: non-focal LLE covered in clean dry dressing. Dx/Plan (1) Ulcer of toe of left foot Code(s): L97.529 - NON-PRESSURE CHRONIC ULCER OTH PRT LEFT FOOT W UNSP SEVERITY Status: Acute Qualifiers: Non-pressure ulcer stage: unspecified non-pressure ulcer stage Qualified Code(s): L97.529 - Non-pressure chronic ulcer of other part of left foot with unspecified severity Comment: s/p amputation and closure. Continue PT/OT. front office manager consult for discharge planning. (2) Cellulitis of left toe Code(s): L03.032 - CELLULITIS OF LEFT TOE Status: Acute Comment: As above. (3) Diabetic neuropathy associated with type 2 diabetes mellitus Code(s): E11.40 - TYPE 2 DIABETES MELLITUS WITH DIABETIC NEUROPATHY, UNSP Status: Acute Qualifiers: Diabetes mellitus complication detail: diabetic polyneuropathy Qualified Code(s): E11.42 - Type 2 diabetes mellitus with diabetic polyneuropathy Comment: Resume metformin. Recheck labs. - Plan cont current plan of care, plan discussed w/ family, PT/OT, social work administrator, DVT proph w/SCDs Continue Vancomycin -: Wound dressing changes every other day -: front office manager to assist with placement. * . Review of Systems - Medications/Allergies Allergies/Adverse Reactions: Allergies Allergy/AdvReac Type Severity Reaction Status Date / Time No Known Drug Allergies Allergy Verified 06/22/17 00:45 Medications: Current Medications Acetaminophen (Tylenol) 1,000 mg PO Q6H PRN PRN Reason: Headache/Fever or Pain Last Admin: 06/26/17 17:19 Dose: 1,000 mg Hydrocodone Bitart/Acetaminophen ([place] 5/325) 1 tab PO Q4H PRN PRN Reason: Moderate Pain (4-6) Last Admin: 06/28/17 08:44 Dose: 1 tab Hydrocodone Bitart/Acetaminophen ([place] 5/325) 2 tab PO Q4H PRN PRN Reason: Severe Pain (7-10) Dextrose/Water (Dextrose 50%) 25 gm SLOW IVP PRN PRN PRN Reason: Hypoglycemia Docusate Sodium (Colace) 100 mg PO BID [facility] Last Admin: 06/28/17 08:47 Dose: 100 mg Famotidine (Pepcid) 20 mg SLOW IVP Q24HR [facility] Last Admin: 06/28/17 09:53 Dose: 20 mg Fentanyl (Sublimaze) 25 mcg SLOW IVP Q2H PRN PRN Reason: Pain Glucagon (Glucagon) 1 mg IM PRN PRN PRN Reason: Hypoglycemia Sodium Chloride (Normal Saline 0.9%) 1,000 mls @ 100 mls/hr IV .Q10H [facility] Last Admin: 06/28/17 05:18 Dose: 1,000 mls Dextrose/Water (D5w) 1,000 mls @ 0 mls/hr IV .Q0M PRN; As Directed PRN Reason: Hypoglycemia Vancomycin HCl 1.5 gm/ Sodium (Chloride) 300 mls @ 200 mls/hr IVPB 0600 [facility] Last Admin: 06/28/17 05:18 Dose: 300 mls Insulin Human Lispro (Humalog) 0 units SC .MODERATE SLIDING SC PRN PRN Reason: Moderate Correctional Scale Last Admin: 06/27/17 21:13 Dose: 2 units Miscellaneous Medication (Pharmacy To Dose) 1 each IVPB PRN PRN PRN Reason: OSTEOMYELITIS Ondansetron HCl (Zofran) 4 mg IVP Q6H PRN PRN Reason: Nausea/Vomiting Sodium Chloride (Flush - Normal Saline) 10 ml IVF PRN PRN PRN Reason: Saline Flush Last Admin: 06/24/17 09:21 Dose: 10 ml Sterile Water (Water For Injection) 1.2 ml FS Q4H PRN PRN Reason: TO RECONSTITUTE ZIPRASIDONE Last Admin: 06/23/17 20:29 Dose: 1.2 ml Ziprasidone (Geodon) 10 mg IM Q4H PRN PRN Reason: Agitation Last Admin: 06/23/17 20:28 Dose: 10 mg
[2017-06-28] MEDS: HumaLOG 300 UNITS/3 ML VIAL SC PRN (20:47)
[2017-06-29] MEDS: Sodium Chloride 0.9% 1,000 ML IV SCH (02:45)
[2017-06-29 05:11] LABS: Hemoglobin 10.2 g/dL (14.0-18.0); Mean Corpuscular HGB CONC 32.7 g/dL (32.0-36.0); Mean Corpuscular Hemoglobin 30.4 pg (27.0-31.0); Mean Corpuscular Volume 93.1 fl (80.0-94.0); Mean Platelet Volume 7.9 fL (7.4-10.4); Platelet Count 173 thou/uL (130-400); RBC Distribution Width 11.6 % (11.5-14.5); Red Blood Cell (RBC) Count 3.34 mill/uL (4.70-6.10); White Blood Cell (WBC) Count 6.4 thou/uL (4.8-10.8)
[2017-06-29 05:27] LABS: Anion Gap 9 mmol/L (10-20); BUN (Urea Nitrogen) 21 mg/dL (8.4-25.7); Calc. Creatinine Clearance 64 mL/min (70-130); Calcium 7.9 mg/dL (7.8-10.44); Carbon Dioxide 27 mmol/L (23-31); Chloride 104 mmol/L (98-107); Estimated GFR-MDRD 84; Glucose 124 mg/dL (83-110); Potassium 3.5 mmol/L (3.5-5.1); Sodium 136 mmol/L (136-145)
[2017-06-29] MEDS ORDERED: Vancomycin HCl 1.75 GM in Sodium Chloride 0.9% 500 ML IVPB SCH (06:00)
[2017-06-29] MEDS: metFORMIN 500 MG TAB PO SCH (07:51)
[2017-06-29] MEDS: Famotidine 20 MG TAB PO SCH (07:52)
[2017-06-29] MEDS: Docusate 100 MG CAP PO SCH ×2 (07:52→20:35)
[2017-06-29] MEDS ORDERED: Bisacodyl 10 MG SUPP PR SCH (11:30)
[2017-06-29] MEDS: Clindamycin 150 MG CAP PO SCH ×3 (11:50→20:36)
[2017-06-29] MEDS ORDERED: Polyethylene Glycol 3350 17 GM Packet PO SCH (12:00)
[2017-06-29] MEDS: HumaLOG 300 UNITS/3 ML VIAL SC PRN ×2 (12:10→20:37)
[2017-06-29] MEDS ORDERED: traMADol HCl 50 MG TAB PO PRN (14:06)
--- NOTE | 2017-06-29 14:09 | PDOC.PN ---
- Subjective Encounter Start Date: 06/29/17 Encounter Start Time: 14:12 Subjective: Complains of pain in L hand -: No acute events overnight - Objective Resuscitation Status: Resuscitation Status DNR:Do Not Resuscitate MAR Reviewed: Yes Vital Signs & Weight: Vital Signs (12 hours) Temp Pulse Resp BP Pulse Ox 06/29/17 08:00 99.2 F 71 20 121/69 93 L Weight Admit Weight 170 lb Weight 170 lb I&O: 06/28/17 06/29/17 06/30/17 06:59 06:59 06:59 Intake Total 5 4008 240 Balance 2114 4008 240 Result Diagrams: 06/29/17 04:53 06/29/17 04:53 Additional Labs: Accuchecks 06/29/17 06/29/17 06/28/17 11:03 05:13 20:25 POC Glucose 161 H 119 H 214 H 06/28/17 17:10 POC Glucose 149 H Phys Exam - Physical Examination Constitutional: NAD HEENT: PERRLA, moist MMs, sclera anicteric Neck: no JVD, supple, full ROM Respiratory: no wheezing, no rales, no rhonchi, clear to auscultation bilateral Cardiovascular: RRR, no significant murmur, no rub Gastrointestinal: soft, non-tender, no distention, positive bowel sounds Musculoskeletal: no edema mild swelling, erythema and differential warmth on L hand Neurological: non-focal, normal sensation, moves all 4 limbs Psychiatric: normal affect Deviation from normal: AO x 2 Skin: no rash, normal turgor Dx/Plan (1) Ulcer of toe of left foot Code(s): L97.529 - NON-PRESSURE CHRONIC ULCER OTH PRT LEFT FOOT W UNSP SEVERITY Status: Acute Qualifiers: Non-pressure ulcer stage: unspecified non-pressure ulcer stage Qualified Code(s): L97.529 - Non-pressure chronic ulcer of other part of left foot with unspecified severity Comment: Stable. s/p amputation and closure. Continue PT/OT, may switch to PO antibiotics. manager business information consult for discharge planning. (2) Cellulitis of left toe Code(s): L03.032 - CELLULITIS OF LEFT TOE Status: Acute Comment: As above. (3) Diabetic neuropathy associated with type 2 diabetes mellitus Code(s): E11.40 - TYPE 2 DIABETES MELLITUS WITH DIABETIC NEUROPATHY, UNSP Status: Acute Qualifiers: Diabetes mellitus complication detail: diabetic polyneuropathy Qualified Code(s): E11.42 - Type 2 diabetes mellitus with diabetic polyneuropathy Comment: Fair glycemic control. Continue metformin. Recheck labs. (4) Pain in left hand Code(s): M79.642 - PAIN IN LEFT HAND Status: Acute Plan: Continue abx, no evidence of acute infection. Will ensure adequate pain control. Comment: Reports incident involving a tree/tree bark about two weeks ago with a cut in the thenar aspect of palm. - Plan cont current plan of care, plan discussed w/ family, PT/OT * . Review of Systems - Medications/Allergies Allergies/Adverse Reactions: Allergies Allergy/AdvReac Type Severity Reaction Status Date / Time No Known Drug Allergies Allergy Verified 06/22/17 00:45 Medications: Current Medications Acetaminophen (Tylenol) 1,000 mg PO Q6H PRN PRN Reason: Headache/Fever or Pain Last Admin: 06/26/17 17:19 Dose: 1,000 mg Hydrocodone Bitart/Acetaminophen ([place] 5/325) 1 tab PO Q4H PRN PRN Reason: Moderate Pain (4-6) Last Admin: 06/28/17 08:44 Dose: 1 tab Hydrocodone Bitart/Acetaminophen ([place] 5/325) 2 tab PO Q4H PRN PRN Reason: Severe Pain (7-10) Clindamycin HCl (Cleocin) 300 mg PO 0400,1000,1600,2200 [facility] Last Admin: 06/29/17 11:50 Dose: 300 mg Dextrose/Water (Dextrose 50%) 25 gm SLOW IVP PRN PRN PRN Reason: Hypoglycemia Docusate Sodium (Colace) 100 mg PO BID [facility] Last Admin: 06/29/17 07:52 Dose: 100 mg Famotidine (Pepcid) 20 mg PO DAILY [facility] Last Admin: 06/29/17 07:52 Dose: 20 mg Fentanyl (Sublimaze) 25 mcg SLOW IVP Q2H PRN PRN Reason: Pain Glucagon (Glucagon) 1 mg IM PRN PRN PRN Reason: Hypoglycemia Dextrose/Water (D5w) 1,000 mls @ 0 mls/hr IV .Q0M PRN; As Directed PRN Reason: Hypoglycemia Insulin Human Lispro (Humalog) 0 units SC .MODERATE SLIDING SC PRN PRN Reason: Moderate Correctional Scale Last Admin: 06/29/17 12:10 Dose: 2 units Metformin HCl (Glucophage) 1,000 mg PO QAM-WM YARITZA Last Admin: 06/29/17 07:51 Dose: 1,000 mg Miscellaneous Medication (Pharmacy To Dose) 1 each IVPB PRN PRN PRN Reason: OSTEOMYELITIS Ondansetron HCl (Zofran) 4 mg IVP Q6H PRN PRN Reason: Nausea/Vomiting Polyethylene Glycol (Miralax) 17 gm PO DAILY [facility] Sodium Chloride (Flush - Normal Saline) 10 ml IVF PRN PRN PRN Reason: Saline Flush Last Admin: 06/24/17 09:21 Dose: 10 ml Sterile Water (Water For Injection) 1.2 ml FS Q4H PRN PRN Reason: TO RECONSTITUTE ZIPRASIDONE Last Admin: 06/23/17 20:29 Dose: 1.2 ml Ziprasidone (Geodon) 10 mg IM Q4H PRN PRN Reason: Agitation Last Admin: 06/23/17 20:28 Dose: 10 mg
--- NOTE | 2017-06-29 16:10 | RAD ---
LEFT HAND 4 VIEWS: Date: 06/29/17 PROVIDED CLINICAL HISTORY: Swelling and erythema about the first MCP joint. FINDINGS: There is osteophyte formation noted about the first MCP joint, as well as the first CMC joint. Joint spaces appear preserved. Alignment appears anatomic. No evidence for fracture or other acute osseous abnormality. Partial amputation of the long digit distal phalanx noted. Questioned radiolucent focus within the thumb distal phalanx near the base versus artifact. IMPRESSION: 1. Degenerative changes as described above. 2. Questionable radiolucent focus within the thumb distal phalanx. Correlation with dedicated thumb imaging recommended. POS: [facility]
[2017-06-29] MEDS: HYDROcodone/Acetaminophen 5/325 mg Tablet PO PRN (20:36)
[2017-06-30] MEDS: Clindamycin 150 MG CAP PO SCH ×2 (05:00→08:10)
[2017-06-30] MEDS: Docusate 100 MG CAP PO SCH (08:10)
[2017-06-30] MEDS: metFORMIN 500 MG TAB PO SCH (08:10)
[2017-06-30] MEDS: Famotidine 20 MG TAB PO SCH (08:11)
[2017-06-30] MEDS ORDERED: Polyethylene Glycol 3350 17 GM Packet PO SCH (09:00)
[2017-06-30] MEDS ORDERED: Enoxaparin Sodium 40 MG/0.4 ML SYRINGE SC SCH (09:00)
[2017-06-30 14:52] VITALS: BP 136/73; TEMP 97.6
--- NOTE | 2017-07-01 07:36 | HP ---
DATE OF ADMISSION: 06/30/2017 HISTORY OF PRESENT ILLNESS: Mr. Trejo is an 89-year-old very pleasant white male that was presente d to the emergency room at [facility] and transferred to [facility] in [place] because of osteomyelitis of his left fifth toe and the patient had amputated by Dr. Madi العلي an d was growing MRSA. He was started on IV antibiotics and Zosyn, eventually switched over to clindamy tawana. He is presently on clindamycin 300 mg q.6 hours for 10 more days. The patient was transferred here for physical therapy and occupational therapy. PAST MEDICAL HISTORY: Reveals the patient is positive for: 1. Hypertension. 2. Type 2 diabetes. 3. Hypercholesterolemia. 4. Adenocarcinoma. 5. Peripheral neuropathy with poor circulation. 6. Benign prostatic hypertrophy followed by Dr. Santamaria, but increased PSA and the patient does not want biopsy. PAST SURGICAL HISTORY: Reveals, 1. In 1994, cholecystectomy. 2. In 1998, left ear squamous cell cancer. 3. In 2004, basal cell cancer, left nostril. 4. In 2005, squamous cell cancer, left forearm. 5. In 2005, skin cancer, right uatsdin. 6. 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 Tong. 7. In 2009, colon cancer by Dr. Winn. 8. Knee surgery. 9. Cataract surgery. 10. Right facial jaw skin biopsy Dr. Olmstead in 12/2015. FAMILY HISTORY: Reveals the patient's mother had cancer. The patient had 2 sisters, one of mauro creatic cancer and diabetes, the other was diagnosed with cancer. Paternal grandfather of [place] at age 64. Paternal grandmother at 100 years old of old age. Maternal grandfather in the 60 s. Maternal grandmother 70 years old. The family history is positive for diabetes, heart disea se, cancer and tuberculosis and ulcer. SOCIAL HISTORY: Reveals the patient does not smoke, rarely uses any alcohol. He is and has children. Does not exercise. ALLERGIES: He has no known allergies. PRESENT MEDICATIONS: Revealed the patient is supposed to be on: 1. Metformin 1000 mg b.i.d. 2. Clindamycin 300 mg q.6 hours for 10 more days. 3. Colace 100 mg b.i.d. 4. Pepcid 20 mg at bedtime. 5. Sliding scale insulin. 6. MiraLax 17 grams daily. 7. Tramadol 50 mg q.6 h. p.r.n. 8. Geodon 10 mg IM q.4 h. p.r.n. agitation. REVIEW OF SYSTEMS: Reveal the patient describes no weight loss or weight gain. His appetite is fair . He has no changes in vision. Denies any chest pain, palpitations, irregular heartbeat, shortness of breath or lower extremity edema. The patient denies any shortness of breath, dyspnea on exertion. The patient denies any diarrhea, constipation, no change in bowel habits. The patient does complai n of myalgias, but for several days he had a temperature of for several days he had stiffness i n his joints. Neurologically, he denies headache, dizzy spells. He does have peripheral neuropathy from his diabetes. He has no anxiety. No mood swings, but he is thought to be depressed because he does not care if he or not. He actually is hoping to soon. Endocrinology mccain he does have diab etes. PHYSICAL EXAMINATION: GENERAL: This is a well-developed, well-nourished, pleasant, thin white male in no apparent distress at this time. HEENT: Normocephalic, nontraumatic cranium. Pupils equally round and reactive. Extraocular movemen ts intact. Nose and throat are slightly dry, but clear. NECK: Supple, without mass, nodes or bruits. CHEST: Clear to auscultation. No rales, rhonchi, wheezes or cough is heard. HEART: Reveals a regular rate and rhythm without murmurs, gallops or rubs. ABDOMEN: Soft, nontender, without organomegaly, normal bowel sounds are noted. No rebound or guardi ng is noted. : Deferred. EXTREMITIES: Reveal no clubbing, cyanosis or edema. ASSESSMENT: 1. Osteomyelitis of the left fifth toe, which has not been amputated. 2. Diabetes, which has been out of control. 3. Alzheimer dementia. 4. Hypertension. 5. Elevated PSA, but the patient does not want to monitor. 6. Hypercholesterolemia. 7. Diabetic peripheral neuropathy. 8. Generalized weakness.
--- NOTE | 2017-07-01 09:26 | DIS ---
DATE OF ADMISSION: 06/21/2017 DATE OF DISCHARGE: 06/30/2017 DISCHARGE DIAGNOSES: Acute left fifth toe osteomyelitis status post amputation, type 2 diabetes gonzalo itus, diabetic neuropathy associated with type 2 diabetes mellitus, pain in left hand, HISTORY OF PRESENT ILLNESS/HOSPITAL COURSE: Mr. Maya Breen is an 89-year-old white male living at [facility] who happened to notice swelling of his left leg. A week before, he presented and his fif th toe was oozing blood and had an open wound. It was noted by his and daughter on the day of a dmission and they took him to the [facility] where he had x-ray of his foot which showed evidence of fifth metatarsal head erosion suggestive of osteomyelitis. The patient was eventually transferred t [facility]. On arrival, he looked stable and was not septic with normal white blood cell count. He had swelling in his leg in which he had a venous Doppler which was negative. Orthopedic Surgery was then consulted. In the meantime, he was started on vancomycin while awaiting orthopedic evaluat ion. He had amputation on the left fifth digit. We deferred trip to the OR for closure. He was sta rted on PT/OT. Culture showed MRSA which is very sensitive to clindamycin, so patient was discharged on this. His other medical conditions including his diabetes were relatively well controlled. The day before discharge, he complained of pain in his left hand and reported falling about 2 weeks befor e his admission. He had an x-ray which ruled out any fractures. He was started on pain medication a nd on day of discharge, he reported no further pain in the hand. DISCHARGE MEDICATIONS: Clindamycin 300 mg q.6 hours, docusate 100 mg twice daily, famotidine 20 mg d aily, Humalog sliding scale, MiraLax 17 grams daily, tramadol 50 mg every 6 hours as needed for pain, Geodon 10 mg intramuscular every 4 hours as needed for agitation, metformin 1000 mg twice daily with meals. PHYSICAL EXAMINATION: GENERAL: He was examined on the day of discharge. VITAL SIGNS: Temperature 97.6, pulse 70, respiratory rate 18, oxygen saturation 94% on room air, blo od pressure 136/73. GENERAL: Not in acute distress. HEENT: PERRLA. Moist mucous membranes. Sclerae are anicteric. NECK: No JVD, supple. Full range of movement. RESPIRATORY: No wheezes, rales or rhonchi. Clear to auscultation bilaterally. CARDIOVASCULAR: Regular rate and rhythm. S1 and S2 with no significant murmurs or rubs. GASTROINTESTINAL: Soft, nontender, and nondistended. Bowel sounds positive. EXTREMITIES: No edema. He has a clean dressing on his left lower extremity. NEUROLOGIC: Nonfocal, alert and oriented x2. PSYCHIATRIC: Normal affect. SKIN: No rashes or lesions. LABORATORY DATA: WBC 6.4, hemoglobin 10.2, platelets 173. Serum chemistry unremarkable with glucose of 124. IMAGING: Hand x-ray, no fractures detected. Lower extremity ultrasound showed no significant eviden ce of occlusion, but there seem to be some predominantly distal disease distal to the left knee. Vas cular ultrasound, no evidence of DVT in the left lower extremity. CONSULTATIONS: Infectious Disease and Orthopedic Surgery. CONDITION AT DISCHARGE: Stable and improved. PROCEDURES: As described in HPI. DIET: Diabetic care goes to follow up with his physician within 1 week of discharge. Repeat labs. ACTIVITY: As tolerated and as directed by PT/OT. DISCHARGE TIME: Sixty-five minutes including chart review and documentation.
== END 2017-06-30 14:55 | DRG 617 ==
LOC: ERS 19:33 → T4-A 22:30
PROVIDERS: ADMIT Family Medicine; ATTEND Family Medicine
PROC: 0Y6Y0Z0 Detachment at Left 5th Toe, Complete, Open Approach (ICD-10-PCS; principal; 2017-06-22)
PROC: 0QDP0ZZ Extraction of Left Metatarsal, Open Approach (ICD-10-PCS; 2017-06-27)
DX: E11.69 Type 2 diabetes mellitus with other specified complication (principal); M86.172 Other acute osteomyelitis, left ankle and foot; L97.529 Non-pressure chronic ulcer of other part of left foot with unspecified severity; D64.9 Anemia, unspecified; E86.0 Dehydration; G30.9 Alzheimer's disease, unspecified; F02.80 Dementia in other diseases classified elsewhere, unspecified severity, without behavioral disturbance, psychotic disturbance, mood disturbance, and anxiety; E11.42 Type 2 diabetes mellitus with diabetic polyneuropathy; Z66 Do not resuscitate; L03.032 Cellulitis of left toe; M79.642 Pain in left hand; Z85.038 Personal history of other malignant neoplasm of large intestine; Z87.891 Personal history of nicotine dependence; N40.0 Benign prostatic hyperplasia without lower urinary tract symptoms; E78.00 Pure hypercholesterolemia, unspecified; Z85.828 Personal history of other malignant neoplasm of skin; R97.20 Elevated prostate specific antigen [PSA]; Z90.49 Acquired absence of other specified parts of digestive tract; B95.62 Methicillin resistant Staphylococcus aureus infection as the cause of diseases classified elsewhere; E11.621 Type 2 diabetes mellitus with foot ulcer; Z85.46 Personal history of malignant neoplasm of prostate; Z96.652 Presence of left artificial knee joint
CPT/HCPCS: 36415; 36416; 80048; 80202; 83036; 83605; 83735; 84550; 85025; 85027; 86140; 87040; 87070; 87077; 87186; 87205; 93005; 93010; 93923; 96365; G8978-GP-CL; G8979-GP-CJ; G8987-GO-CL; G8988-GO-CJ; J0360; J1630; J1650; J2001; J2405; J2543; J2550; J2704; J3010; J3370; J3486; J3490; J7050; S0020